=== PATIENT | male | born 1995 | race Two or more races ===

== ENCOUNTER 2020-10-31 20:25 | Emergency (ER) | payer SELFPAY ==
[2020-10-31] MEDS ORDERED: KEFLEX CAP 500500 MG PO (21:27)
== END 2020-10-31 23:30 | disposition home or self-care (01) ==
LOC: ER1 20:25
DX: S61.412A Laceration without foreign body of left hand, initial encounter (principal); Z23 Encounter for immunization; W26.8XXA Contact with other sharp object(s), not elsewhere classified, initial encounter; Y92.89 Other specified places as the place of occurrence of the external cause; Y99.0 Civilian activity done for income or pay
CPT/HCPCS: 12002; 73130; 90471; 90715; 99283